=== PATIENT | female | born 1965 | race Caucasian/White ===

== ENCOUNTER 2016-12-24 23:43 | Emergency (ER) | payer BC, MEDICAID ==
[~2016-12-24] VITALS: Ht 152.4 cm; Wt 103.5 kg
[~2016-12-24 23:43] MED LIST: HYDR-2254 PO; METO100T PO
[2016-12-25 00:26] VITALS: Ht 152.4 cm; Wt 103.5 kg
--- NOTE | 2016-12-25 01:00 | ERA ---
ER Documentation Chief Complaint Date/Time DATE: 12/25/16 TIME: 01:00 Chief Complaint High blood pressure HPI The patient is a 51-year-old female, presenting to the ER because of elevated blood pressure. She has been on valsartan and stopped about 3 days ago when her doctor started on metoprolol 50 mg daily and clonidine 0.1 mg as needed. She did take clonidine 0.1 mg at 11 PM prior to arrival because her blood pressure was high. She denies any headache, syncope, near syncope, weakness, neck pain, chest pain, dyspnea, abdominal pain, vomiting. There was a recent in the family and she is under a lot of stress. She does not smoke nor drink Past medical history: Hypertension, dyslipidemia Past surgical history: Tubal ligation ROS All systems reviewed and are negative except as per history of present illness. Medications Home Meds Reported Medications Metoprolol (Lopressor) 100 Mg Tablet, 100 MG PO BID 07/19/12 Hydrochlorothiazide (Hydrochlorothiazide) 50 Mg Tablet, 50 MG PO DAILY 07/19/12 Allergies Allergies: Coded Allergies: amoxicillin (Verified Allergy, Intermediate, Hives and throat swelling, 12/25/16) PMhx/Soc History of Surgery: Yes (TUBAL LIGATION) Anesthesia Reaction: No Hx Neurological Disorder: No Hx Respiratory Disorders: No Hx Cardiac Disorders: Yes (HTN,high cholesterol) Hx Psychiatric Problems: No Hx Miscellaneous Medical Probl: No Hx Alcohol Use: No Hx Substance Use: No Hx Tobacco Use: No Smoking Status: Never smoker Physical Exam Vitals Vital Signs Date Time Temp Pulse Resp B/P Pulse Ox O2 Delivery O2 Flow Rate FiO2 12/25/16 03:15 88 18 166/84 100 Room Air 12/25/16 03:01 87 18 172/88 100 Room Air 12/25/16 02:34 189/93 12/25/16 02:14 217/108 12/25/16 01:50 68 18 166/88 99 Room Air 12/25/16 00:26 97.3 63 20 232/120 98 Physical Exam Const: No acute distress. Head: Atraumatic. Eyes: Normal Conjunctiva. ENT: Normal External Ears, Nose and Mouth. Neck: Full range of motion. No meningismus. Resp: Clear to auscultation bilaterally. Cardio: Regular rate and rhythm, no murmurs. Abd: Soft, non distended, normal bowel sounds, non tender. Skin: No petechiae or rashes. Back: No midline or flank tenderness. Ext: No cyanosis, or edema. Neur: Awake and alert. No focal deficit Psych: Normal Mood and Affect. Result Diagram: 12/25/16 0129 12/25/16 0253 Results 24 hrs Laboratory Tests Test 12/25/16 01:29 12/25/16 02:53 White Blood Count 7.710^3/ul Red Blood Count 4.7510^6/ul Hemoglobin 12.8g/dl Hematocrit 39.7% Mean Corpuscular Volume 83.6fl Mean Corpuscular Hemoglobin 26.9pg Mean Corpuscular Hemoglobin Concent 32.2g/dl Red Cell Distribution Width 14.0% Platelet Count 75934^3/UL Mean Platelet Volume 9.6fl Neutrophils % 65.2% Lymphocytes % 23.5% Monocytes % 8.4% Eosinophils % 1.9% Basophils % 0.5% Nucleated Red Blood Cells % 0.0/100WBC Neutrophils # 5.010^3/ul Lymphocytes # 1.810^3/ul Monocytes # 0.710^3/ul Eosinophils # 0.210^3/ul Basophils # 0.010^3/ul Nucleated Red Blood Cells # 0.010^3/ul Prothrombin Time 12.3Sec Prothrombin Time Ratio 1.0 INR International Normalized Ratio 0.91 Activated Partial Thromboplast Time 30.7Sec Sodium Level 137mmol/L Potassium Level 5.6mmol/L 3.8mmol/L Chloride Level 107mmol/L Carbon Dioxide Level 24mmol/L Anion Gap 12 Blood Urea Nitrogen 13mg/dl Creatinine 0.67mg/dl Glucose Level 96mg/dl Calcium Level 9.0mg/dl Current Medications Medications (Trade) Dose Ordered Sig/Mazin Route PRN Reason Start Time Stop Time Status Last Admin Dose Admin Hydralazine HCl (Apresoline) 20 mg ONCE ONCE IV 12/25/16 01:30 12/25/16 01:31 DC 12/25/16 01:42 Lorazepam (Ativan) 1 mg ONCE ONCE PO 12/25/16 02:30 12/25/16 02:31 DC 12/25/16 02:33 Procedures/MDM EKG: Read by emergency physician Rate/Rhythm: Normal Sinus Rhythm 76 beats/min QRS, ST, T-waves: No ST elevation, no T inversion, nonspecific T abnormality Impression: Abnormal EKG MEDICAL MAKING DECISION: The patient is a 51-year-old female, presenting with acute accelerated hypertension, acute stress. She was treated with hydralazine 20 mg IV 1 for acute accelerated hypertension and Ativan 1 mg p.o. for acute anxiety with good response. The differential diagnoses considered include but are not limited to subarachnoid hemorrhage, occult trauma, CVA, meningitis, encephalitis, hypertension, tension, migraine, cluster, narcotic withdrawal, cervical spine disease. Departure Diagnosis: Primary Impression: Accelerated hypertension Condition: Good Comments I discussed the findings with the patient. I advised the patient to follow-up with the primary physician in about 1-2 days, sooner if needed and return if any concern. SAEED LADD MD Dec 25, 2016 01:00
[2016-12-25] MEDS ORDERED: hydrALAzine 20 MG INJ IV ONE (01:30)
[2016-12-25 01:50] LABS: ADD SCAN DIFF NO
[2016-12-25 01:51] LABS: BASOPHILS % 0.5 % (0.0-2.0); EOSINOPHILS # 0.2 10^3/ul (0.0-0.5); EOSINOPHILS % 1.9 % (0.0-7.0); HEMATOCRIT 39.7 % (37.0-47.0); HEMOGLOBIN 12.8 g/dl (12.0-16.0); LYMPHOCYTES # 1.8 10^3/ul (0.8-2.9); LYMPHOCYTES % 23.5 % (15.0-51.0); MEAN CORPUSCULAR HEMOGLOBIN 26.9 pg (29.0-33.0); MEAN CORPUSCULAR HGB CONC 32.2 g/dl (32.0-37.0); MEAN CORPUSCULAR VOLUME 83.6 fl (82.0-101.0); MEAN PLATELET VOLUME 9.6 fl (7.4-10.4); MONOCYTE # 0.7 10^3/ul (0.3-0.9); MONOCYTES % 8.4 % (0.0-11.0); NEUTROPHILS % 65.2 % (39.0-77.0); PLATELET COUNT 309 10^3/UL (140-415); RED BLOOD COUNT 4.75 10^6/ul (4.20-5.40); WHITE BLOOD COUNT 7.7 10^3/ul (4.8-10.8)
[2016-12-25 02:03] LABS: INR 0.91; PARTIAL THROMBOPLASTIN TIME 30.7 Sec (25.0-35.0); PROTIME 12.3 Sec (12.2-14.2)
[2016-12-25 02:06] LABS: CREATININE 0.67 mg/dl (0.44-1.00); POTASSIUM 5.6 mmol/L (3.5-5.1)
[2016-12-25] MEDS ORDERED: LORAZEPAM 1 MG TAB PO ONE (02:30)
[2016-12-25 04:13] VITALS: BP 152/84; PULSE 74; RESP 16
== END 2016-12-25 04:17 | disposition home or self-care (01) ==
LOC: E/R 23:43
DX: I10 Essential (primary) hypertension (principal)
CPT/HCPCS: 36415; 80048; 84132; 85025; 85610; 85730; 96374; 99284; J0360; Z7610; 93005